=== PATIENT | male | born 1985 | race Caucasian/White ===

== ENCOUNTER 2020-07-24 10:13 | Outpatient (CLI) | payer BC, OTHER ==
[2020-07-24] VITALS (21 sets, daily range): BP systolic 112–143; BP diastolic 73–91
== END 2020-07-24 23:59 | disposition home or self-care (01) ==
LOC: CARD DIAG 10:13
PROVIDERS: ATTEND Internal Medicine Cardiovascular Disease
DX: R42 Dizziness and giddiness (principal)
CPT/HCPCS: 93660